=== PATIENT | male | born 1950 | race Caucasian/White ===

== ENCOUNTER 2016-07-07 19:24 | Observation (INO) | payer OTHER ==
[~2016-07-07] VITALS: Ht 188 cm; Wt 104.3 kg
--- NOTE | ~2016-07-07 | D ---
[facility] [place] [address] DISCHARGE SUMMARY Name: ARMAAN SMALLS Room #: 547-P [facility] Aure Mccarthy#: [id number] Admission: 07/07/16 Attend Phys: Nelly Izquierdo Discharge: 07/09/16 Date of : 52 Report #: [id number] THIS REPORT FOR: //name// CC: Guillermo Izquierdo DATE OF SERVICE: 07/09/2016 DATE OF ADMISSION: 07/07/2016. DATE OF DISCHARGE: 07/09/2016. DISCHARGE DIAGNOSES: 1. Post lithotripsy pain with retained stones. 2. Hypertension. CONSULTS: Urology. PROCEDURES: None. HOSPITAL COURSE: The patient is a 65-year-old male with a history of nephrolithiasis, status post lithotripsy procedure, presented to the ER secondary to left back pain radiating to his groin. Please see details of admission dictated by Dr. Mcelroy on 07/07. The patient was admitted for post lithotripsy pain and Urology was consulted. He was started on antiemetics, pain control and IV fluids. Over the course of 2 days, his symptoms have improved significantly. Nurses report straining a few calculi. He has had no fever or chills and is doing much better and tolerating orals. He is cleared for discharge by Urology. DISCHARGE DISPOSITION: To home. DISCHARGE PHYSICAL EXAMINATION: VITAL SIGNS: Temperature of 98, pulse 68, blood pressure 130/74 and O2 sat 97% on room air. GENERAL: He is awake and alert, answering questions appropriately, in no acute respiratory distress. HEENT: Normocephalic and atraumatic. Pupils equal. NECK: Supple. CARDIOVASCULAR: Regular rate and rhythm. No murmurs. LUNGS: Clear to auscultation bilaterally. No crackles or wheeze. ABDOMEN: Soft, no distention or tenderness. EXTREMITIES: No edema. NEUROLOGIC: Nonfocal. DISCHARGE MEDICATIONS: Blakely p.r.n., Flomax 0.4 mg x 7 days, chlorthalidone [address] [id number] DISCHARGE SUMMARY Name: ARMAAN SMALLS Room #: 547-P [facility] Aure MChaseRChase#: [id number] Admission: 07/07/16 Attend Phys: Nelly Izquierdo Discharge: 07/09/16 Date of : 52 Report #: [id number] daily, losartan 100 at bedtime and Zocor 40 mg daily. DIET: Regular diet. ACTIVITY: As tolerated. FOLLOWUP: Follow up with Urology in 1 week or as instructed. Follow up with primary care in 1 week with repeat labs and to seek immediate medical attention if symptoms worsen or recur or if he has any other significant medical concerns. <ELECTRONICALLY SIGNED> By: Candace Valdovinos MD 08/01/162009 1151 [id number] Candace Valdovinos MD /nt
[~2016-07-07 19:24] MED LIST: CITRATE OF MAG296 ML PO; COLACE 100 MG100 MG PO; FLEXERIL PO; NORCO 5-325 TA1 EACH PO; PERCOCET 7.5-31 EACH PO; VALIUM5 MG PO; ZOCOR
[2016-07-07 19:25] VITALS: BP 81/44
[2016-07-07 20:04] LABS: ABSOLUTE NEUTROPHILS 8.8 thou/uL (1.4-8.2); BASOPHILS 0.4 % (0.0-2.0); EOSINOPHILS 0.2 % (0.0-3.0); HEMATOCRIT 42.2 % (42.0-52.0); HEMOGLOBIN 14.7 gm/dL (14.0-18.0); LYMPHOCYTES 17.3 % (24.0-44.0); MANUAL DIFF NO; MCH 30.1 pg (26.0-34.0); MCHC 34.9 % (28.0-37.0); MCV 86.2 fL (80.0-100.0); MONOCYTES 9.2 % (1.0-8.0); PLATELET COUNT 236 thou/uL (150-400); POLYS 72.9 % (36.0-66.0); RBC 4.89 mil/uL (4.50-6.00); RDW 13.5 % (10.5-14.5); WBC 12.1 thou/uL (4.0-11.0)
[2016-07-07 20:24] LABS: CALCIUM 8.7 mg/dL (8.5-10.1); CREATININE 1.1 mg/dL (0.6-1.3)
[2016-07-07 20:30] LABS: ALBUMIN 3.7 g/dL (3.4-5.0); POTASSIUM 2.9 mmol/L (3.5-5.1); TOTAL BILIRUBIN 0.7 mg/dL (<0.1-1.0); TOTAL PROTEIN 7.1 g/dL (6.4-8.2)
[2016-07-07 21:32] LABS: URINE BILIRUBIN NEGATIVE (Negative); URINE BLOOD 3+ (Negative); URINE GLUCOSE-RANDOM* NEGATIVE (Negative); URINE KETONES NEGATIVE (Negative); URINE LEUKOCYTES-REFLEX NEGATIVE (Negative); URINE PROTEIN (DIPSTICK) TRACE (Negative)
[2016-07-07 21:35] LABS: URINE COLOR AMBER
[2016-07-07 21:41] LABS: CASTS None Seen /LPF (None Seen); SQUAMOUS None Seen /LPF (0-3); URINE RBC >20 Many /HPF (0-2); URINE WBC-REFLEX 0-5 Rare /HPF (0-5)
[2016-07-07 21:43] LABS: CRYSTALS None Seen /LPF (None Seen); TRANSITIONAL EPITHEL CELL 0-3 Few /LPF (None Seen)
[2016-07-07 23:02] VITALS: BP 141/76
[2016-07-07 23:21] VITALS: BP 136/68
[2016-07-08 04:00] VITALS: BP 115/52
[2016-07-08 06:11] LABS: BASOPHILS 0.1 % (0.0-2.0); EOSINOPHILS 0.6 % (0.0-3.0); HEMOGLOBIN 13.2 gm/dL (14.0-18.0); LYMPHOCYTES 20.1 % (24.0-44.0); MCH 29.3 pg (26.0-34.0); MCHC 33.9 % (28.0-37.0); MCV 86.6 fL (80.0-100.0); MONOCYTES 9.7 % (1.0-8.0); PLATELET COUNT 210 thou/uL (150-400); POLYS 69.5 % (36.0-66.0); RBC 4.51 mil/uL (4.50-6.00); RDW 13.6 % (10.5-14.5); WBC 11.5 thou/uL (4.0-11.0)
[2016-07-08 06:33] LABS: MANUAL DIFF NO
[2016-07-08 06:48] LABS: CALCIUM 8.1 mg/dL (8.5-10.1); CREATININE 1.3 mg/dL (0.6-1.3); PHOSPHORUS 3.7 mg/dL (2.5-4.9)
[2016-07-08 07:08] LABS: POTASSIUM 2.9 mmol/L (3.5-5.1)
[2016-07-08 08:22] VITALS: BP 143/72
[2016-07-08 15:17] VITALS: BP 151/85
[2016-07-08] MEDS ORDERED: SIMVASTATIN40 MG PO (17:42)
[2016-07-08] MEDS ORDERED: CHLORTHALIDONE25 MG (17:43)
[2016-07-08] MEDS ORDERED: LOSARTAN POTAS100 MG (17:43)
[2016-07-08 19:58] VITALS: BP 136/63
[2016-07-09 05:20] VITALS: BP 116/58
[2016-07-09 07:44] VITALS: BP 138/74
[2016-07-09] MEDS ORDERED: TAMSULOSIN HCL0.4 MG PO (11:13)
[2016-07-09 12:39] VITALS: BP 138/74
[2016-07-14 15:06] LABS: STONE CA OXALATE DIHYDRATE 85 % (()); STONE CA OXALATE MONOHYDRATE 10 % (()); STONE COLOR Tan (())
== END 2016-07-09 14:49 | disposition home or self-care (01) ==
LOC: ER 19:24 → EROBS 22:38 → 5S 23:04
PROVIDERS: Hospitalist; Physician Assistant; Urology
DX: G89.18 Other acute postprocedural pain (principal); Z87.442 Personal history of urinary calculi; Z79.899 Other long term (current) drug therapy; Z79.2 Long term (current) use of antibiotics; N20.1 Calculus of ureter; I10 Essential (primary) hypertension

== ENCOUNTER → 2019-11-20 | Outpatient (CLI) | payer BC ==
[~2019-11-20] MED LIST changes: +CHLORTHALIDONE25 MG; +LOSARTAN POTAS100 MG; +SIMVASTATIN40 MG PO; +TAMSULOSIN HCL0.4 MG PO
== END ==
LOC: SJCVCIMAG 11:16
PROVIDERS: ATTEND Internal Medicine Cardiovascular Disease
DX: K76.0 Fatty (change of) liver, not elsewhere classified (principal); R10.9 Unspecified abdominal pain

== ENCOUNTER → 2019-11-21 | Outpatient (CLI) | payer BC, OTHER | LOC: SJCVCIMAG 10:02 | DX: I07.1 Rheumatic tricuspid insufficiency (principal); E11.9 Type 2 diabetes mellitus without complications; R94.31 Abnormal electrocardiogram [ECG] [EKG] ==

== ENCOUNTER → 2019-11-26 | Outpatient (CLI) | payer BC, OTHER | LOC: SJCVCIMAG 07:34 | DX: R94.31 Abnormal electrocardiogram [ECG] [EKG] (principal); I49.3 Ventricular premature depolarization; I10 Essential (primary) hypertension; E78.5 Hyperlipidemia, unspecified; Z79.899 Other long term (current) drug therapy ==